=== PATIENT | male | born 1955 | race Caucasian/White ===

== ENCOUNTER 2016-11-30 15:04 | Emergency (ER) | payer BC ==
[~2016-11-30] VITALS: Ht 180.3 cm; Wt 87.8 kg
[2016-11-30 15:05] VITALS: Ht 180.3 cm; Wt 87.8 kg
[2016-11-30] MEDS ORDERED: ASPI81TA2 PO (15:57)
[2016-11-30] MEDS ORDERED: CANA300T PO (15:57)
[2016-11-30] MEDS ORDERED: METF500T4 PO ×2 (15:57→15:58)
[2016-11-30 16:31] LABS: BASOPHILS % (AUTO) 0.4 % (0-2); EOSINOPHILS # (AUTO) 0.2 T/MM3 (0-0.5); EOSINOPHILS % (AUTO) 1.8 % (0-4); HCT - HEMATOCRIT 44.4 % (41-53); HGB - HEMOGLOBIN 15.2 GM/DL (13.5-17.5); LYMPHOCYTES # (AUTO) 2.6 T/MM3 (1-4.8); LYMPHOCYTES % (AUTO) 30.2 % (23-45); MEAN CORPUSCULAR HGB 30.9 UUG (26-34); MEAN CORPUSCULAR HGB CONC(MCHC 34.2 GM/DL (31-37); MEAN CORPUSCULAR VOLUME 90.2 UM3 (80-100); MEAN PLATELET VOLUME 9.6 UM3 (9.4-12.4); MONOCYTES # (AUTO) 0.5 T/MM3 (0-0.8); MONOCYTES % (AUTO) 5.9 % (0-9.0); NEUTROPHILS #(AUTO)-ABSOLUTE 5.2 T/MM3 (1.8-7.7); NEUTROPHILS % (AUTO) 61.7 % (33-66); RED BLOOD COUNT 4.92 M/MM3 (4.50-5.90); WBC - WHITE BLOOD COUNT 8.5 T/MM3 (4.5-11.0)
[2016-11-30 16:40] LABS: ALBUMIN 4.1 G/DL (3.5-5.0); ALBUMIN/GLOBULIN RATIO 1.4 RATIO (1.1-2.2); ALKALINE PHOSPHATASE 64 U/L (38-126); ALT (SGPT) 34 U/L (21-72); ANION GAP 14 MEQ/L (5-15); AST (SGOT) 68 U/L (17-59); BUN/CREATININE RATIO 24 RATIO (6-26); CALCIUM 9.5 MG/DL (8.4-10.2); CHLORIDE 103 MEQ/L (98-107); CO2 - CARBON DIOXIDE 26 MEQ/L (22-30); CREATININE 0.7 MG/DL (0.8-1.5); GLOMERULAR FILTRATION RATE 114; GLUCOSE 194 MG/DL (75-110); POTASSIUM 4.4 MEQ/L (3.6-5); SODIUM 143 MEQ/L (134-144); TOTAL PROTEIN 7.1 G/DL (6.3-8.2)
[2016-11-30] MEDS ORDERED: IBUP-1547 PO (17:07)
[2016-11-30] MEDS ORDERED: GLIP5TAB11 PO (17:07)
[2016-11-30] MEDS ORDERED: LISI-621 PO (17:08)
[2016-11-30] MEDS ORDERED: ATOR20TA59 PO (17:08)
--- NOTE | 2016-11-30 17:41 | ERPDOC ---
Departure Disposition Decision Date: Nov 30, 2016 Disposition Decision Time: 17:00 Disposition: 02 TO [facility] Impression Impression Impression: Primary Impression: Elevated troponin Severity: Severe Condition: Critical Seen By: Physician only Referrals: JONELLE DAN MD (Family) Problems/Meds/Labs Reviewed?: Yes Medications reviewed and manag: Yes Follow up care ordered?: Yes Mental Status: Alert, Oriented Critical Care Note Total Time (mins): 47 Critical Care Spent: [id number] care of pt, Reviewing test results, Discuss the case w/staff, Documenting the MR, Discussion w/ family/DPOA During this visit the pt was: At Risk of Deterioration HPI - Chest Pain General Chief Complaint: Chest Pain Stated Complaint: CHEST AND BACK PAIN Time Seen by Provider: 15:59 Source: patient Exam Limitations: no limitations HPI - Chest Pain Initial Comments 61-year-old male presents to the emergency department with a chief complaint of intermittent chest discomfort. Patient has been experiencing intermittent chest discomfort for the past 2 weeks with exertion. Patient describes the pain as a dull mild pressure without radiation. Patient states that he feels a tight pressure throughout the side of his left chest when the pressure is present. Patient is currently pain free. Patient notes that if he sits down to rest the pain alleviates. Pain lasts approximately 30 minutes when present. Patient has had 2 episodes in the past 24 hours. Patient was at home when his symptoms were experienced. Symptoms have been intermittent in nature. No other complaints or associated symptoms. Patient denies personal history of coronary artery disease. Patient is a known diabetic. Patient did take 81 mg of ASA today prior to arrival to the ED. Occurred At: home Onset/Timing: other (Intermittent) Aspirin Treatment Today: 81 mg x 1, 81 mg x 3, provided by ED, provided at home Allergies: Coded Allergies: No Known Allergies (Unverified , 11/30/16) Past History Past Medical History Metabolic: diabetes Surgical History Joint: knee Family History Family History: Negative Social History Smoking Status: Never smoker Substance Use Type: does not use Alcohol Intake: occasionally Review of Systems Constitutional Constitutional: DENIES: chills, fever Eyes General: DENIES: erythema, exudate Lids/Accessories: DENIES: erythema, swelling Vision: DENIES: acuity, blurring ENMT Ears: DENIES: drainage, erythema Hearing: DENIES: hearing loss Balance: DENIES: ataxia, falling to one side Sinuses: DENIES: congestion, pain Nose: DENIES: nosebleeds Mouth/Throat: DENIES: painful swallowing, sore throat Teeth: DENIES: pain Jaw: DENIES: pain Cardiovascular Cardiac: chest pain (resolved), DENIES: dyspnea on exertion Rhythm/Rate: DENIES: irregular beat, palpitations Vascular: DENIES: pedal edema, unilateral swelling Pulmonary Respiratory: DENIES: cough, dyspnea, pleuritic chest pain, sputum GI Upper Abdomen: DENIES: nausea, pain, vomiting Lower Abdomen: DENIES: diarrhea, pain General: DENIES: dysuria, frequency Musculoskeletal General: DENIES: joint pain, tenderness Integumentary Skin: DENIES: itching, rash Neurological General: DENIES: headache, numbness, weakness Psychiatric Psychiatric: DENIES: emotional instability, suicidal ideation/attempt Endocrine Endocrine: DENIES: polydipsia, polyphagia Hematologic/Lymphatic Hematologic/Lymphatic: DENIES: frequent nosebleeds, lymphadenopathy Allergic/Immunological Allergic/Immunoligical: DENIES: allergic reactions, hives Physical Exam General General Nourishment: well nourished, well developed, appears stated age, no acute distress, adult General Body Habitus: well groomed Vitals and Pain First Documented Vital Signs Date Time Temp Pulse Resp B/P Pulse Ox O2 Delivery O2 Flow Rate FiO2 11/30/16 15:05 98.6 58 16 150/72 97 Room Air Weight: Kilograms: 87.800 Height (feet): 5 Height (inches): 11.00 Triage Pain Scale: RN VS reviewed by Provider: Yes Normal Exams: Head: Normocephalic w/o trauma Eyes: Pupils are PERRLA w/ EOMI, No scleral icterus, irritation, or foreign bodies noted ENMT: No facial trauma, nasal exudates, pharyngeal erythema, or exudates are noted Dental: No fractured, loose, or missing teeth noted Neck: Full range of motion, without adenopathy, JVD, bruits or thyromegaly Chest/Resp: Clear all [place], with good airflow, and symmetry bilaterally CV: Regular rate and rhythm, without murmur or gallop, Pulses 2+ all extremities, capillary refill, <2 seconds all ext., no pedal edema noted Abdomen: Bowel sounds positive, soft, non-tender, non-distended, no hepatosplenomegaly, masses or bruits noted Lymphatic: No lymphadenopathy, or lymphedema noted Musculoskeletal: No tenderness, or deformity noted, good range of motion, all extremities Integumentary: No rashes, hives, or bruising noted, hair and nails, without abnormality Neurologic: Patient is alert, and oriented, cranial nerves, motor/sensory/ cerebellar, exams w/o gross deficits, to observation Psychiatric: Patient exhibits, appropriate attention, emotion and affect Differential Diagnoses Considering: Acute IA, Anxiety/Panic, Angina, CHF, Pneumothorax Progress Results/Orders Orders Procedure Category Date Status Time Cbc W/Auto LAB 11/30/16 Complete Diff-Reflex Manual Cmp - Comprehensive LAB 11/30/16 Complete Metabolic Troponin I W LAB 11/30/16 Complete Hemolysis Index EKG EKG 11/30/16 Taken Ekg Prn FRANCES 11/30/16 In Process 15:59 Chest 1 View RAD 11/30/16 Taken 17:03 Aspirin (Asa) PHA 12/01/16 In Process 09:00 Lab Results Laboratory Tests Test 11/30/16 16:25 White Blood Count 8.5T/MM3 Red Blood Count 4.92M/MM3 Hemoglobin 15.2GM/DL Hematocrit 44.4% Mean Corpuscular Volume 90.2UM3 Mean Corpuscular Hemoglobin 30.9UUG Mean Corpuscular Hemoglobin Concent 34.2GM/DL RDW Standard Deviation 40.7FL Platelet Count 227T/MM3 Mean Platelet Volume 9.6UM3 Immature Granulocyte % (Auto) 0.0% Neutrophils (%) (Auto) 61.7% Lymphocytes (%) (Auto) 30.2% Monocytes (%) (Auto) 5.9% Eosinophils (%) (Auto) 1.8% Basophils (%) (Auto) 0.4% Absolute Immature Granulocyte (auto 0.00T/MM3 Absolute Neutrophils (auto) 5.2T/MM3 Absolute Lymphocytes (auto) 2.6T/MM3 Absolute Monocytes (auto) 0.5T/MM3 Absolute Eosinophils (auto) 0.2T/MM3 Absolute Basophils (auto) 0.0T/MM3 Turbidity < 20 Sodium Level 143MEQ/L Potassium Level 4.4MEQ/L Chloride Level 103MEQ/L Carbon Dioxide Level 26MEQ/L Anion Gap 14MEQ/L Blood Urea Nitrogen 17.0MG/DL Creatinine 0.7MG/DL Glomerular Filtration Rate Calc 114 BUN/Creatinine Ratio 24RATIO Glucose Level 194MG/DL Calculated Osmolality 282MOSM/KG Calcium Level 9.5MG/DL Total Bilirubin 0.50MG/DL Icterus Index < 2 Aspartate Amino Transf (AST/SGOT) 68U/L Alanine Aminotransferase (ALT/SGPT) 34U/L Alkaline Phosphatase 64U/L Troponin I 8.610ng/ml Total Protein 7.1G/DL Albumin 4.1G/DL Globulin 3.0G/DL Albumin/Globulin Ratio 1.4RATIO Chemistry Specimen Hemolysis < 15 Medications Current ED Medications Aspirin (ASA) 324 mg DAILY PO Last administered on 11/30/16t 18:01; Start 12/01 at 09:00 Progress Progress Labs / imaging were discussed in detail with the patient and questions are answered. Patient is pain-free in the emergency Department. Patient is not experiencing chest pain during evaluation in the emergency department today. Patient's EKGs were reviewed at the bedside by Dr. Jeffery Mckeon of cardiology who does not believe that the EKGs meet STEMI criteria. Patient is also pain-free. Troponin returns elevated. Patient is given 324 mg of aspirin by mouth 1 in the emergency Department. Patient requests transfer to [facility] for further evaluation and treatment with Dr. Mckeon. Patient is in agreement with the current plan of management. Patient is stable for transfer at this time. Risk versus benefit of transfer is discussed in detail with the patient and questions are answered. Accepting physician will be Dr. Mckeon of cardiology at [facility]. He is in agreement with the current plan of management and has evaluated the patient at the bedside. 47 minutes of critical care time was assessed to the patient due to the elevated troponin. Patient required repeated assessment at bedside, complex medical decision-making , and had potential for decompensation. EKG EKG : Rate: 60-100 Rhythm: sinus Eads: normal QRS: normal, RBBB Intervals: normal ST/T: other (NO STEMI. Reviewed by Cardiology - Dr. Jeffery Mckeon in ED. ) Interpreted by: signing physician EKG Comments EKG #2 - sinus bradycardia. 58 bpm. No STEMI. Reviewed with Dr. Pamela Mckeon at bedside. Both EKGs are similar. No reciprocal changes. STEMI CRITERIA NOT MET ON EITHER EKG PER CARDIOLOGY. Xray Xray : Interpretation: Normal, Reviewed Written Report KYLIE MENDES DO Nov 30, 2016 17:41
[2016-11-30 18:10] VITALS: BP 135/71; PULSE 61; RESP 16; TEMP 98.6; O2SAT 97
[2016-12-01] MEDS ORDERED: ASPIRIN 81 MG CHEWABLE TABLET PO SCH (09:00)
--- NOTE | 2016-12-02 10:19 | DI ---
Indication: ITS.REASON: Severe chest pain for two weeks PROCEDURE: CHEST 1 VIEW: Encounter: Initial Comparison: None FINDINGS: The lungs are clear. There is no abnormal airspace opacity, pleural effusion or pneumothorax identified. The heart size, pulmonary vasculature and mediastinum are within normal limits. No significant skeletal abnormality is seen. IMPRESSION: No acute cardiopulmonary abnormality. There is a preliminary report by virtual radiologic. .
== END 2016-11-30 18:10 | disposition short-term general hospital (02) ==
LOC: ED 15:04
DX: R07.89 Other chest pain (principal); R79.89 Other specified abnormal findings of blood chemistry
CPT/HCPCS: 36000; 80053; 84484; 85025; 93005